=== PATIENT | female | born 1965 | race Caucasian/White ===

== ENCOUNTER 2019-04-25 21:08 | Emergency (ER) | payer SELFPAY ==
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
[2019-04-25 21:55] VITALS: BP 164/89; TEMP 97.6; O2SAT 98
== END 2019-04-25 21:42 | disposition home or self-care (01) ==
LOC: ER 21:08
DX: S20.212A Contusion of left front wall of thorax, initial encounter (principal); V43.53XA Car driver injured in collision with pick-up truck in traffic accident, initial encounter; Y93.89 Activity, other specified; Y92.410 Unspecified street and highway as the place of occurrence of the external cause
CPT/HCPCS: 99283

== ENCOUNTER 2024-12-14 02:15 | Emergency (ER) | payer OTHER ==
--- OUTSIDE RECORDS SUMMARY | 2024-12-14 02:20 | XMS REPORT | Continuity of Care Document ---
Author Name Unknown Address [address] [address] [place] [address] [facility] Address 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 Role Phone Almita Lancaster Primary Care Physician [phone] MOJGAN FOSTER Attending Clinician Unavailabl e Therapy, [facility] Covid Infusion Attending Clinician Unavailable Hernandez Woods MD Attending Clinician [phone] HERNANDEZ WOODS Attending Clinician Unavailable Doctor Unassigned, [place] Attending Clinician U MEREDITH Mac Attending Clinician Unavailable Meredith Garcia PA-C Attending Clinician [phone] Jono Morfin PA-C Attending Clinician [phone] Almita Lancaster Attending Clinician [phone] CHICHI BAIN Attending Clinician Unavailable Chichi Bain MD Attending Clinician [phone] Mojgan Foster MDsons Attending Clinician Unavail able Only, Adc Test Attending Clinician Unavailable SABAALMITA HAIR Tommy Attending Clinician Unavailable Yolanda MCLAUGHLIN, Paulo Norris Attending Clinician [phone] Pob, [facility] Lab Main Attending Clinician Unavailromero e Lab, Adc Fam Pob I Attending Clinician Unavailab AGGIE Martinez Attending Clinician Unavailable Bennie Quinn DO Attending Clinician [phone] FIDELINA ALONZO Attending Clinician Mary Streeter MD, Misael Ledesma Attending Clinician [phone] Jamil Costello Attending Clinician [phone] Attending Clinician Unavailromero Alonzo MD, Fidelina Bradley Attending Clinician + [phone] Elsi Babcock Attending Clinician [phone] ELSI CHAVARRIA Attending Clinician Unavailable Natividad BELTRAN, Ngoc Montano Attending Clinician Cally Aron Cheng MD Attending Clinician [phone] MOJGAN FOSTER Admitting Clinician Unavailromero Foster MD, Mojgan Moscoso Admitting Clinician Payers Payer Name Policy Type Policy Number Effective Date Expirati on Date Source XTRM [id number] 2020 00:00:00 [id number] 2019 00:00:00 Problems Condition Name Condition Details Condition Category Status Onset Date Resolution Date Last Treatment Date Treating Clinician Comments Source Esophageal reflux Esophageal reflux Disease Active 02-10 00:00: 00 [facility] Positive FIT (fecal immunochem ical test) Positive FIT (fecal immunochem ical test) Disease Active 02-05 00:00: 00 [facility] Obesity (BMI 30-39.9) Obesity (BMI 30-39.9) Disease Active 09-25 00:00: 00 [facility] Genital warts Genital warts Disease Active 09-25 00:00: 00 [facility] H/O bariatric surgery H/O bariatric surgery Disease Active 2- 00:00: 00 [facility] Prediabete s Prediabete s Disease Active 1-29 00:00: 00 [facility] Right shoulder pain Right shoulder pain Disease Active 03-30 00:00: 00 [facility] Heel pain, right Heel pain, right Disease Active 03-30 00:00: 00 [facility] Skin lesion Skin lesion Disease Active 03-30 00:00: 00 [facility] Hot flashes Hot flashes Disease Active 03-30 00:00: 00 [facility] Cyst of finger Cyst of finger Disease Active 03-30 00:00: 00 [facility] Right hand pain Right hand pain Disease Active 01-13 00:00: 00 [facility] Allergies, Adverse Reactions, Alerts Allergy Name Allergy Type Status Severity Reaction(s) Onset Date Inactive Date Treating Clinician Comments Source NO KNOWN ALLERGIE S Drug Class Active [facility] Social History Social Habit Start Date Stop Date Quantity Comments Source [facility] SARS-CoV-2 (event) 2021-07-04 00:00:00 2021-08-03 09:28:00 Yes [facility] History of Social function 2021-04-02 00:00:00 2021-04-02 00:00:00 [facility] Alcohol intake 2019-10-26 00:00:00 2019-10-26 00:00:00 0 /d [facility] Cigarettes smoked current (pack per day) - Reported 2019-09-25 00:00:00 2019-09-25 00:00:00 [facility] Cigarette pack-years 2019-09-25 00:00:00 2019-09-25 00:00:00 [facility] Tobacco use and exposure 2019-09-25 00:00:00 2019-09-25 00:00:00 User of smokeless tobacco [facility] Tobacco Comment 2016-03-30 00:00:00 2016-03-30 00:00:00 using e cig now= fills once daily [facility] History of tobacco use 2012-03-30 00:00:00 Cigarette Smoker [facility] Sex Assigned At 1965 00:00:00 1965 00:00:00 [facility] Smoking Status Start Date Stop Date Source Ex-smoker 2019-09-25 00:00:00 2019-09-25 00:00:00 [facility] Medications Ordered Medication Name Filled Medication Name Start Date Stop Date Current Medication? Ordering Clinician Indication Dosage Frequency Signature (SIG) Comments Components Source casirivimab -imdevimab (REGEN-COV (EUA)) injection (CO-FORMULA TION) 1,200 mg 2020-08 00:30: 00 08-05 23:24 :00 No [id number] 1200mg 1,200 mg, Subcutaneo us, ONCE, 1 dose, On Wed08/05/21 at 1830, Routine [facility] multivitami n,tx-minera ls tablet 2020-08 11:51: 52 Yes 1{tbl} Take 1 tablet by mouth daily. [facility] esomeprazol e 20 mg capsule 2020-08 11:51: 52 Yes 20mg Take 20 mg by mouth daily before a meal. [facility] multivitami n,tx-minera ls tablet 2020-08 11:51: 52 Yes 1{tbl} Take 1 tablet by mouth daily. [facility] bromphenira mine-pseudo ephedrine-D M (BROMFED DM) 2-30-10 mg/5 mL syrup 2020-08 00:00: 00 Yes [id number] 5mL Take 5 mL by mouth 4 (four) times daily as needed for Congestion /Allergies or Cough. [facility] cetirizine 10 mg tablet 2020-08 00:00: 00 Yes [id number] 10mg Take 1 tablet by mouth daily. [facility] fluticasone propionate 50 mcg/actuati on nasal spray 2020-08 00:00: 00 Yes [id number] 2{spray } Use 2 Sprays in each nostril daily. [facility] esomeprazol e 20 mg capsule 04-03 19:26: 32 Yes 20mg Take 20 mg by mouth daily before a meal. [facility] esomeprazol e 20 mg capsule 04-03 14:26: 32 Yes 20mg Take 20 mg by mouth daily before a meal. [facility] multivitami n,tx-minera ls tablet 04-02 15:31: 39 Yes 1{tbl} Take 1 tablet by mouth daily. [facility] esomeprazol e 20 mg capsule 04-02 15:31: 39 Yes 20mg Take 20 mg by mouth daily before a meal. [facility] lactated ringers IV infusion 500 mL 04-02 15:15: 00 Yes 500mL at 42 mL/hr, 500 mL, IV Infusion, CONTINUOUS , Starting Wed04/02/21 at 1015, Until Discontinu ed, Routine, PACU [facility] ondansetron (ZOFRAN (PF)) injection 4 mg 04-02 15:06: 40 Yes 4mg 4 mg, Slow IV Push, PRN, 1 dose, Starting Wed04/02/21 at 1006, Until Discontinu ed, Routine, Nausea and Vomiting (N/V), PACU [facility] simethicone (GAS RELIEF (SIMETHICON E)) 40 mg/0.6 mL drops 04-02 13:22: 00 Yes PRN, Starting Wed04/02/21 at 0822, Until Discontinu ed, Routine, Intra-op [facility] lactated ringers IV infusion 1,000 mL 04-02 13:15: 00 04-02 13:24 :00 No 1000mL at 42 mL/hr, 1,000 mL, IV Infusion, ONCE, 1 dose, Wed04/02/21 at 0815, Routine, Endo Pre-op [facility] multivitami n,tx-minera ls tablet 04-02 10:31: 39 Yes 1{tbl} Take 1 tablet by mouth daily. [facility] multivitami n,tx-minera ls tablet 804 15:10: 01 Yes 1{tbl} Take 1 tablet by mouth daily. [facility] multivitami n,tx-minera ls tablet 03-06 13:40: 40 Yes 1{tbl} Take 1 tablet by mouth daily. [facility] esomeprazol e 20 mg capsule 03-06 13:40: 40 Yes 20mg Take 20 mg by mouth daily before a meal. [facility] azelastine 137 mcg (0.1 %) nasal spray 03-06 00:00: 00 Yes [id number] 1{spray } Use 1 [place] in each nostril 2 (two) times daily. Use in each nostril as directed [facility] benzonatate (TESSALON PERLES) 100 mg capsule 03-06 00:00: 00 08-03 00:00 :00 No [id number] 100mg Take 1 capsule by mouth 3 (three) times daily. [facility] multivitami n,tx-minera ls tablet 02-10 20:35: 53 Yes 1{tbl} Take 1 tablet by mouth daily. [facility] esomeprazol e 20 mg capsule 02-10 20:35: 44 Yes 20mg Take 20 mg by mouth daily before a meal. [facility] sodium,pota ssium,mag sulfates (SUPREP BOWEL PREP KIT) 17.5-3.13-1 .6 gram 02-10 00:00: 00 04-02 00:00 :00 No Please dispense 1 kit. [facility] multivitami n,tx-minera ls tablet 01-24 19:11: 09 Yes 1{tbl} Take 1 tablet by mouth daily. [facility] multivitami n,tx-minera ls tablet 2019-08 19:26: 19 Yes 1{tbl} Take 1 tablet by mouth daily. [facility] multivitami n,tx-minera ls tablet 12-28 16:18: 28 Yes 1{tbl} Take 1 tablet by mouth daily. [facility] lidocaine/m e-salicylat /camphor (VIVA PATCH TOPICAL) 12-28 16:17: 41 12-28 00:00 :00 No Apply to area(s). [facility] CYANOCOBALA MIN, VITAMIN B-12, MISC 12-28 16:17: 20 12-28 00:00 :00 No [facility] lidocaine/m e-salicylat /camphor (VIVA PATCH TOPICAL) 10-25 21:19: 35 Yes Apply to area(s). [facility] loratadine 10 mg tablet 10-25 00:00: 00 12-28 00:00 :00 No [id number] 10mg Take 1 tablet by mouth daily. [facility] fluticasone propionate 50 mcg/actuati on nasal spray 10-25 00:00: 00 12-28 00:00 :00 No [id number] 2{spray } Use 2 Sprays in each nostril daily. [facility] lidocaine/m e-salicylat /camphor (VIVA PATCH TOPICAL) 09-25 16:35: 00 Yes Apply to area(s). [facility] CYANOCOBALA MIN, VITAMIN B-12, MISC 10 16:35: 00 Yes [facility] Diclofenac Sodium 1 % gel 09-20 00:00: 00 12-28 00:00 :00 No [facility] clotrimazol e 1 % topical cream 09-13 00:00: 00 12-28 00:00 :00 No [id number] Apply to area(s) 2 (two) times daily. [facility] LEVOTHYROXI NE 75 mcg tablet 10-28 00:00: 00 09-13 00:00 :00 No TAKE 1 TABLET BY MOUTH EVERY MORNING. [facility] TRIAMTERENE -HYDROCHLOR OTHIAZID 37.5-25 mg tablet 2017- 1-10 00:00: 00 09-13 00:00 :00 No [id number] TAKE 1 TABLET BY MOUTH EVERY DAY. [facility] Immunizations Ordered Immunization Name Filled Immunization Name Date Status Comments Source SARS-COV-2 COVID-19 MODERNA VACCINE 2020-12-18 00:00:00 Completed [facility] SARS-COV-2 COVID-19 MODERNA VACCINE 2020-12-18 00:00:00 Completed [facility] SARS-COV-2 COVID-19 MODERNA VACCINE 2020-12-18 00:00:00 Completed [facility] SARS-COV-2 COVID-19 MODERNA VACCINE 2020-12-18 00:00:00 Completed [facility] SARS-COV-2 COVID-19 MODERNA VACCINE 2020-12-18 00:00:00 Completed [facility] SARS-COV-2 COVID-19 MODERNA VACCINE 2020-12-18 00:00:00 Completed [facility] SARS-COV-2 COVID-19 MODERNA VACCINE 2020-12-18 00:00:00 Completed [facility] SARS-COV-2 COVID-19 MODERNA VACCINE 2020-12-18 00:00:00 Completed [facility] SARS-COV-2 COVID-19 MODERNA VACCINE 2020-12-18 00:00:00 Completed [facility] SARS-COV-2 COVID-19 MODERNA VACCINE 2020-12-18 00:00:00 Completed [facility] SARS-COV-2 COVID-19 MODERNA VACCINE 2020-12-18 00:00:00 Completed [facility] SARS-COV-2 COVID-19 MODERNA VACCINE 2020-12-18 00:00:00 Completed [facility] SARS-COV-2 COVID-19 MODERNA VACCINE 2020-12-18 00:00:00 Completed [facility] SARS-COV-2 COVID-19 MODERNA VACCINE 2020-12-18 00:00:00 Completed [facility] SARS-COV-2 COVID-19 MODERNA VACCINE 2020-12-18 00:00:00 Completed [facility] SARS-COV-2 COVID-19 MODERNA VACCINE 2020-12-18 00:00:00 Completed [facility] SARS-COV-2 COVID-19 MODERNA VACCINE 2020-12-18 00:00:00 Completed [facility] SARS-COV-2 COVID-19 MODERNA VACCINE 2020-12-18 00:00:00 Completed [facility] SARS-COV-2 COVID-19 MODERNA VACCINE 2020-12-18 00:00:00 Completed [facility] SARS-COV-2 COVID-19 MODERNA VACCINE 2020-12-18 00:00:00 Completed [facility] SARS-COV-2 COVID-19 MODERNA VACCINE 2020-12-18 00:00:00 Completed [facility] SARS-COV-2 COVID-19 MODERNA VACCINE 2020-11-20 00:00:00 Completed [facility] SARS-COV-2 COVID-19 MODERNA VACCINE 2020-11-20 00:00:00 Completed [facility] SARS-COV-2 COVID-19 MODERNA VACCINE 2020-11-20 00:00:00 Completed [facility] SARS-COV-2 COVID-19 MODERNA VACCINE 2020-11-20 00:00:00 Completed [facility] SARS-COV-2 COVID-19 MODERNA VACCINE 2020-11-20 00:00:00 Completed [facility] SARS-COV-2 COVID-19 MODERNA VACCINE 2020-11-20 00:00:00 Completed [facility] SARS-COV-2 COVID-19 MODERNA VACCINE 2020-11-20 00:00:00 Completed [facility] SARS-COV-2 COVID-19 MODERNA VACCINE 2020-11-20 00:00:00 Completed [facility] SARS-COV-2 COVID-19 MODERNA VACCINE 2020-11-20 00:00:00 Completed [facility] SARS-COV-2 COVID-19 MODERNA VACCINE 2020-11-20 00:00:00 Completed [facility] SARS-COV-2 COVID-19 MODERNA VACCINE 2020-11-20 00:00:00 Completed [facility] SARS-COV-2 COVID-19 MODERNA VACCINE 2020-11-20 00:00:00 Completed [facility] SARS-COV-2 COVID-19 MODERNA VACCINE 2020-11-20 00:00:00 Completed [facility] SARS-COV-2 COVID-19 MODERNA VACCINE 2020-11-20 00:00:00 Completed [facility] SARS-COV-2 COVID-19 MODERNA VACCINE 2020-11-20 00:00:00 Completed [facility] SARS-COV-2 COVID-19 MODERNA VACCINE 2020-11-20 00:00:00 Completed [facility] SARS-COV-2 COVID-19 MODERNA VACCINE 2020-11-20 00:00:00 Completed [facility] SARS-COV-2 COVID-19 MODERNA VACCINE 2020-11-20 00:00:00 Completed [facility] SARS-COV-2 COVID-19 MODERNA VACCINE 2020-11-20 00:00:00 Completed [facility] SARS-COV-2 COVID-19 MODERNA VACCINE 2020-11-20 00:00:00 Completed [facility] SARS-COV-2 COVID-19 MODERNA VACCINE 2020-11-20 00:00:00 Completed [facility] Influenza Virus Vaccine Recomb Quad IM, Preserv and ABX Free 18-64 YRS 2020-06-17 00:00:00 Completed [facility] Influenza Virus Vaccine Recomb Quad IM, Preserv and ABX Free 18-64 2020-06-17 00:00:00 Completed [facility] Influenza Virus Vaccine Recomb Quad IM, Preserv and ABX Free 18-64 YRS 2020-06-17 00:00:00 Completed [facility] Influenza Virus Vaccine Recomb Quad IM, Preserv and ABX Free 18-64 YRS 2020-06-17 00:00:00 Completed [facility] Influenza Virus Vaccine Recomb Quad IM, Preserv and ABX Free 18-64 YRS 2020-06-17 00:00:00 Completed [facility] Influenza Virus Vaccine Recomb Quad IM, Preserv and ABX Free 18-64 YRS 2020-06-17 00:00:00 Completed [facility] Influenza Virus Vaccine Recomb Quad IM, Preserv and ABX Free 18-64 YRS 2020-06-17 00:00:00 Completed [facility] Influenza Virus Vaccine Recomb Quad IM, Preserv and ABX Free 18-64 YRS 2020-06-17 00:00:00 Completed [facility] Influenza Virus Vaccine Recomb Quad IM, Preserv and ABX Free 18-64 YRS 2020-06-17 00:00:00 Completed [facility] Influenza Virus Vaccine Recomb Quad IM, Preserv and ABX Free 18-64 YRS 2020-06-17 00:00:00 Completed [facility] Influenza Virus Vaccine Recomb Quad IM, Preserv and ABX Free 18-64 [facility] 2020-06-17 00:00:00 Completed [facility] Influenza Virus Vaccine Recomb Quad IM, Preserv and ABX Free 18-64 YRS 2020-06-17 00:00:00 Completed [facility] Influenza Virus Vaccine Recomb Quad IM, Preserv and ABX Free 18-64 [facility] 2020-06-17 00:00:00 Completed [facility] Influenza Virus Vaccine Recomb Quad IM, Preserv and ABX Free 18-64 [facility] 2020-06-17 00:00:00 Completed [facility] Influenza Virus Vaccine Recomb Quad IM, Preserv and ABX Free 18-64 [facility] 2020-06-17 00:00:00 Completed [facility] Influenza Virus Vaccine Recomb Quad IM, Preserv and ABX Free 18-64 [facility] 2020-06-17 00:00:00 Completed [facility] Influenza Virus Vaccine Recomb Quad IM, Preserv and ABX Free 18-64 [facility] 2020-06-17 00:00:00 Completed [facility] Influenza Virus Vaccine Recomb Quad IM, Preserv and ABX Free 18-64 [facility] 2020-06-17 00:00:00 Completed [facility] Influenza Virus Vaccine Recomb Quad IM, Preserv and ABX Free 18-64 [facility] 2020-06-17 00:00:00 Completed [facility] Influenza Virus Vaccine Recomb Quad IM, Preserv and ABX Free 18-64 [facility] 2020-06-17 00:00:00 Completed [facility] Influenza Virus Vaccine Recomb Quad IM, Preserv and ABX Free 18-64 YRS 2020-06-17 00:00:00 Completed [facility] TDAP 2019-09-13 00:00:00 Completed [facility] Influenza Virus Vaccine Quad .5 mL IM 6+ MO 2019-09-13 00:00:00 Completed [facility] Tdap 2019-09-13 00:00:00 Completed [facility] Influenza Virus Vaccine Quad .5 mL IM 6+ MO 2019-09-13 00:00:00 Completed [facility] Tdap 2019-09-13 00:00:00 Completed [facility] Influenza Virus Vaccine Quad .5 mL IM 6+ MO 2019-09-13 00:00:00 Completed [facility] Tdap 2019-09-13 00:00:00 Completed [facility] Influenza Virus Vaccine Quad .5 mL IM 6+ MO 2019-09-13 00:00:00 Completed [facility] Tdap 2019-09-13 00:00:00 Completed [facility] Influenza Virus Vaccine Quad .5 mL IM 6+ MO 2019-09-13 00:00:00 Completed [facility] Tdap 2019-09-13 00:00:00 Completed [facility] Influenza Virus Vaccine Quad .5 mL IM 6+ MO 2019-09-13 00:00:00 Completed [facility] Tdap 2019-09-13 00:00:00 Completed [facility] Influenza Virus Vaccine Quad .5 mL IM 6+ MO 2019-09-13 00:00:00 Completed [facility] Tdap 2019-09-13 00:00:00 Completed [facility] Influenza Virus Vaccine Quad .5 mL IM 6+ MO 2019-09-13 00:00:00 Completed [facility] Tdap 2019-09-13 00:00:00 Completed [facility] Influenza Virus Vaccine Quad .5 mL IM 6+ MO 2019-09-13 00:00:00 Completed [facility] Tdap 2019-09-13 00:00:00 Completed [facility] Influenza Virus Vaccine Quad .5 mL IM 6+ MO 2019-09-13 00:00:00 Completed [facility] Tdap 2019-09-13 00:00:00 Completed [facility] Influenza Virus Vaccine Quad .5 mL IM 6+ MO 2019-09-13 00:00:00 Completed [facility] TDAP 2019-09-13 00:00:00 Completed [facility] Influenza Virus Vaccine Quad .5 mL IM 6+ MO 2019-09-13 00:00:00 Completed [facility] TDAP 2019-09-13 00:00:00 Completed [facility] Influenza Virus Vaccine Quad .5 mL IM 6+ MO 2019-09-13 00:00:00 Completed [facility] TDAP 2019-09-13 00:00:00 Completed [facility] Influenza Virus Vaccine Quad .5 mL IM 6+ MO 2019-09-13 00:00:00 Completed [facility] TDAP 2019-09-13 00:00:00 Completed [facility] Influenza Virus Vaccine Quad .5 mL IM 6+ MO 2019-09-13 00:00:00 Completed [facility] TDAP 2019-09-13 00:00:00 Completed [facility] Influenza Virus Vaccine Quad .5 mL IM 6+ MO 2019-09-13 00:00:00 Completed [facility] TDAP 2019-09-13 00:00:00 Completed [facility] Influenza Virus Vaccine Quad .5 mL IM 6+ MO 2019-09-13 00:00:00 Completed [facility] TDAP 2019-09-13 00:00:00 Completed [facility] Influenza Virus Vaccine Quad .5 mL IM 6+ MO 2019-09-13 00:00:00 Completed [facility] TDAP 2019-09-13 00:00:00 Completed [facility] Influenza Virus Vaccine Quad .5 mL IM 6+ MO 2019-09-13 00:00:00 Completed [facility] TDAP 2019-09-13 00:00:00 Completed [facility] Influenza Virus Vaccine Quad .5 mL IM 6+ MO 2019-09-13 00:00:00 Completed [facility] TDAP 2019-09-13 00:00:00 Completed [facility] Influenza Virus Vaccine Quad .5 mL IM 6+ MO 2019-09-13 00:00:00 Completed [facility] TDAP 2019-09-13 00:00:00 Completed [facility] Influenza Virus Vaccine Quad .5 mL IM 6+ MO 2019-09-13 00:00:00 Completed [facility] TDAP 2019-09-13 00:00:00 Completed [facility] Influenza Virus Vaccine Quad .5 mL IM 6+ MO 2019-09-13 00:00:00 Completed [facility] TDAP 2019-09-13 00:00:00 Completed [facility] Influenza Virus Vaccine Quad .5 mL IM 6+ MO 2019-09-13 00:00:00 Completed [facility] TDAP 2019-09-13 00:00:00 Completed [facility] Influenza Virus Vaccine Quad .5 mL IM 6+ MO 2019-09-13 00:00:00 Completed [facility] TDAP 2019-09-13 00:00:00 Completed [facility] Influenza Virus Vaccine Quad .5 mL IM 6+ MO 2019-09-13 00:00:00 Completed [facility] TDAP 2019-09-13 00:00:00 Completed [facility] Influenza Virus Vaccine Quad .5 mL IM 6+ MO 2019-09-13 00:00:00 Completed [facility] TDAP 2019-09-13 00:00:00 Completed [facility] Influenza Virus Vaccine Quad .5 mL IM 6+ MO 2019-09-13 00:00:00 Completed [facility] TDAP 2019-09-13 00:00:00 Completed [facility] Influenza Virus Vaccine Quad .5 mL IM 6+ MO 2019-09-13 00:00:00 Completed [facility] TDAP 2019-09-13 00:00:00 Completed [facility] Influenza Virus Vaccine Quad .5 mL IM 6+ MO 2019-09-13 00:00:00 Completed [facility] TDAP 2019-09-13 00:00:00 Completed [facility] Influenza Virus Vaccine Quad .5 mL IM 6+ MO 2019-09-13 00:00:00 Completed [facility] TDAP 2019-09-13 00:00:00 Completed [facility] Influenza Virus Vaccine Quad .5 mL IM 6+ MO 2019-09-13 00:00:00 Completed [facility] TDAP 2019-09-13 00:00:00 Completed [facility] Influenza Virus Vaccine Quad .5 mL IM 6+ MO 2019-09-13 00:00:00 Completed [facility] TDAP 2019-09-13 00:00:00 Completed [facility] Influenza Virus Vaccine Quad .5 mL IM 6+ MO 2019-09-13 00:00:00 Completed [facility] TDAP 2019-09-13 00:00:00 Completed [facility] Influenza Virus Vaccine Quad .5 mL IM 6+ MO 2019-09-13 00:00:00 Completed [facility] TDAP 2019-09-13 00:00:00 Completed [facility] Influenza Virus Vaccine Quad .5 mL IM 6+ MO 2019-09-13 00:00:00 Completed [facility] TDAP 2019-09-13 00:00:00 Completed [facility] Influenza Virus Vaccine Quad .5 mL IM 6+ MO 2019-09-13 00:00:00 Completed [facility] TDAP 2019-09-13 00:00:00 Completed [facility] Influenza Virus Vaccine Quad .5 mL IM 6+ MO 2019-09-13 00:00:00 Completed [facility] TDAP 2019-09-13 00:00:00 Completed [facility] Influenza Virus Vaccine Quad .5 mL IM 6+ MO 2019-09-13 00:00:00 Completed [facility] TDAP 2019-09-13 00:00:00 Completed [facility] Influenza Virus Vaccine Quad .5 mL IM 6+ MO 2019-09-13 00:00:00 Completed [facility] TDAP 2019-09-13 00:00:00 Completed [facility] Influenza Virus Vaccine Quad .5 mL IM 6+ MO 2019-09-13 00:00:00 Completed [facility] TDAP 2019-09-13 00:00:00 Completed [facility] Influenza Virus Vaccine Quad .5 mL IM 6+ MO 2019-09-13 00:00:00 Completed [facility] TDAP Unknown Completed [facility] Influenza Virus Vaccine Quad .5 mL IM 6+ MO (FLUZONE/FLULAVAL/F LUARIX) Unknown Completed [facility] SARS-COV-2 COVID-19 MODERNA 12+ YRS VACCINE Unknown Completed [facility] Influenza Virus Vaccine Recomb Quad IM, Preserv and ABX Free 18-64 YRS Unknown Completed [facility] TDAP Unknown Completed [facility] Influenza Virus Vaccine Quad .5 mL IM 6+ MO (FLUZONE/FLULAVAL/F LUARIX) Unknown Completed [facility] SARS-COV-2 COVID-19 MODERNA 12+ YRS VACCINE Unknown Completed [facility] Influenza Virus Vaccine Recomb Quad IM, Preserv and ABX Free 18-64 YRS Unknown Completed [facility] TDAP Unknown Completed [facility] Influenza Virus Vaccine Quad .5 mL IM 6+ MO (FLUZONE/FLULAVAL/F LUARIX) Unknown Completed [facility] SARS-COV-2 COVID-19 MODERNA 12+ YRS VACCINE Unknown Completed [facility] Influenza Virus Vaccine Recomb Quad IM, Preserv and ABX Free 18-64 YRS Unknown Completed [facility] TDAP Unknown Completed [facility] Influenza Virus Vaccine Quad .5 mL IM 6+ MO (FLUZONE/FLULAVAL/F LUARIX) Unknown Completed [facility] TDAP Unknown Completed [facility] Influenza Virus Vaccine Quad .5 mL IM 6+ MO (FLUZONE/FLULAVAL/F LUARIX) Unknown Completed [facility] Vital Signs Vital Name Observation Time Observation Value Comments S ource Systolic blood pressure 2021-08-06 00:09:00 126 mm[Hg] [facility] Diastolic blood pressure 2021-08-06 00:09:00 71 mm[Hg] [facility] Heart rate 2021-08-06 00:09:00 97 /min [facility] Body temperature 2021-08-06 00:09:00 37.11 [facility] Respiratory rate 2021-08-06 00:09:00 18 /min [facility] Oxygen saturation in Arterial blood by Pulse oximetry 2021-08-06 00:09:00 97 /min [facility] Body height 2021-08-05 23:22:00 165.1 cm [facility] Body weight 2021-08-05 23:22:00 83.915 kg [facility] BMI 2021-08-05 23:22:00 30.79 kg/m2 [facility] Systolic blood pressure 2021-08-03 17:50:00 119 mm[Hg] [facility] Diastolic blood pressure 2021-08-03 17:50:00 76 mm[Hg] [facility] Heart rate 2021-08-03 17:50:00 94 /min [facility] Body temperature 2021-08-03 17:50:00 36.89 [facility] Respiratory rate 2021-08-03 17:50:00 20 /min [facility] Body height 2021-08-03 17:50:00 165.1 cm [facility] Body weight 2021-08-03 17:50:00 84.142 kg Univ [facility] BMI 2021-08-03 17:50:00 30.87 kg/m2 [facility] Oxygen saturation in Arterial blood by Pulse oximetry 2021-08-03 17:50:00 97 /min [facility] Systolic blood pressure 2021-04-03 19:26:00 121 mm[Hg] [facility] Diastolic blood pressure 2021-04-03 19:26:00 74 mm[Hg] [facility] Heart rate 2021-04-03 19:26:00 86 /min [facility] Body temperature 2021-04-03 19:26:00 36.56 [facility] Respiratory rate 2021-04-03 19:26:00 16 /min [facility] Body height 2021-04-03 19:26:00 165.1 cm [facility] Body weight 2021-04-03 19:26:00 83.28 kg [facility] BMI 2021-04-03 19:26:00 30.55 kg/m2 [facility] Systolic blood pressure 2021-04-02 15:05:00 122 mm[Hg] [facility] Diastolic blood pressure 2021-04-02 15:05:00 71 mm[Hg] [facility] Heart rate 2021-04-02 15:05:00 69 /min [facility] Respiratory rate 2021-04-02 15:05:00 16 /min [facility] Oxygen saturation in Arterial blood by Pulse oximetry 2021-04-02 15:05:00 100 /min [facility] Body temperature 2021-04-02 14:50:00 36.5 [facility] Body height 2021-04-02 13:28:00 165.1 cm [facility] Body weight 2021-04-02 13:28:00 79.379 [facility] 2021-04-02 13:28:00 29.12 kg/m2 [facility] Systolic blood pressure 2021-04-02 13:28:00 132 mm[Hg] [facility] Diastolic blood pressure 2021-04-02 13:28:00 75 mm[Hg] [facility] Heart rate 2021-04-02 13:28:00 71 /min [facility] Body temperature 2021-04-02 13:28:00 36.39 [facility] Respiratory rate 2021-04-02 13:28:00 16 /min [facility] Body height 2021-04-02 13:28:00 165.1 cm [facility] Body weight 2021-04-02 13:28:00 79.379 kg Univ [facility] BMI 2021-04-02 13:28:00 29.12 kg/m2 [facility] Oxygen saturation in Arterial blood by Pulse oximetry 2021-04-02 13:28:00 96 /min [facility] Systolic blood pressure 2021-03-19 15:08:00 121 mm[Hg] [facility] Diastolic blood pressure 2021-03-19 15:08:00 74 mm[Hg] [facility] Heart rate 2021-03-19 15:08:00 88 /min [facility] Body temperature 2021-03-19 15:08:00 36.72 [facility] Respiratory rate 2021-03-19 15:08:00 16 /min [facility] Body height 2021-03-19 15:08:00 167.6 cm [facility] Body weight 2021-03-19 15:08:00 83.371 kg Univ [facility] BMI 2021-03-19 15:08:00 29.67 kg/m2 [facility] Body temperature 2021-03-06 13:50:00 36.61 [facility] Systolic blood pressure 2021-03-06 13:37:00 119 mm[Hg] [facility] Diastolic blood pressure 2021-03-06 13:37:00 57 mm[Hg] [facility] Heart rate 2021-03-06 13:37:00 78 /min [facility] Respiratory rate 2021-03-06 13:37:00 16 /min [facility] Body height 2021-03-06 13:37:00 167.6 cm [facility] Body weight 2021-03-06 13:37:00 83.462 kg [facility] BMI 2021-03-06 13:37:00 29.70 kg/m2 [facility] Oxygen saturation in Arterial blood by Pulse oximetry 2021-03-06 13:37:00 96 /min [facility] Systolic blood pressure 2021-02-10 19:46:00 129 mm[Hg] [facility] Diastolic blood pressure 2021-02-10 19:46:00 76 mm[Hg] [facility] Heart rate 2021-02-10 19:46:00 85 /min [facility] Body temperature 2021-02-10 19:46:00 36.17 [facility] Respiratory rate 2021-02-10 19:46:00 18 /min [facility] Body height 2021-02-10 19:46:00 167.6 cm [facility] Body weight 2021-02-10 19:46:00 80.604 kg [facility] BMI 2021-02-10 19:46:00 28.68 kg/m2 [facility] Oxygen saturation in Arterial blood by Pulse oximetry 2021-02-10 19:46:00 97 /min [facility] Systolic blood pressure 2021-01-24 19:10:00 126 mm[Hg] [facility] Diastolic blood pressure 2021-01-24 19:10:00 76 mm[Hg] [facility] Heart rate 2021-01-24 19:10:00 85 /min [facility] Body temperature 2021-01-24 19:10:00 36.67 [facility] Body height 2021-01-24 19:10:00 167.6 cm [facility] Body weight 2021-01-24 19:10:00 82.373 kg [facility] BMI 2021-01-24 19:10:00 29.31 kg/m2 [facility] Oxygen saturation in Arterial blood by Pulse oximetry 2021-01-24 19:10:00 99 /min [facility] Systolic blood pressure 2020-07-04 19:23:00 116 mm[Hg] [facility] Diastolic blood pressure 2020-07-04 19:23:00 72 mm[Hg] [facility] Heart rate 2020-07-04 19:23:00 76 /min [facility] Body height 2020-07-04 19:23:00 165.1 cm [facility] Body weight 2020-07-04 19:23:00 77.111 kg [facility] BMI 2020-07-04 19:23:00 28.29 kg/m2 [facility] Systolic blood pressure 2020-07-04 19:23:00 116 mm[Hg] [facility] Diastolic blood pressure 2020-07-04 19:23:00 72 mm[Hg] [facility] Heart rate 2020-07-04 19:23:00 76 /min [facility] Body height 2020-07-04 19:23:00 165.1 cm [facility] Body weight 2020-07-04 19:23:00 77.111 kg [facility] BMI 2020-07-04 19:23:00 28.29 kg/m2 [facility] Systolic blood pressure 2019-10-26 21:19:00 111 mm[Hg] [facility] Diastolic blood pressure 2019-10-26 21:19:00 68 mm[Hg] [facility] Heart rate 2019-10-26 21:19:00 76 /min [facility] Body temperature 2019-10-26 21:19:00 36.56 [facility] Body height 2019-10-26 21:19:00 165.1 cm [facility] Body weight 2019-10-26 21:19:00 84.142 kg [facility] BMI 2019-10-26 21:19:00 30.87 kg/m2 [facility] Oxygen saturation in Arterial blood by Pulse oximetry 2019-10-26 21:19:00 98 /min [facility] Systolic blood pressure 2019-09-25 16:30:00 136 mm[Hg] [facility] Diastolic blood pressure 2019-09-25 16:30:00 78 mm[Hg] [facility] Heart rate 2019-09-25 16:30:00 91 /min [facility] Body temperature 2019-09-25 16:30:00 36.72 [facility] Respiratory rate 2019-09-25 16:30:00 20 /min [facility] Body height 2019-09-25 16:30:00 165.1 cm [facility] Body weight 2019-09-25 16:30:00 85.73 kg [facility] BMI 2019-09-25 16:30:00 31.45 kg/m2 [facility] Systolic blood pressure 2019-09-13 14:18:00 113 mm[Hg] [facility] Diastolic blood pressure 2019-09-13 14:18:00 72 mm[Hg] [facility] Heart rate 2019-09-13 14:18:00 79 /min [facility] Body temperature 2019-09-13 14:18:00 36.44 [facility] Body height 2019-09-13 14:18:00 165.1 cm Univ [facility] Body weight 2019-09-13 14:18:00 87.998 kg [facility] BMI 2019-09-13 14:18:00 32.28 kg/m2 [facility] Oxygen saturation in Arterial blood by Pulse oximetry 2019-09-13 14:18:00 97 /min [facility] Procedures Procedure Date / Time Performed Performing Clinician Source [id number] CONSENT 2021-08-05 06:01:00 Doctor Coronel signed, [place] [facility] SCANNED LAB RESULTS 2021-04-04 05:01:00 Doctor Dafne lyle, [place] [facility] DISCLOSURE AND CONSENT MEDICAL & SURGICAL PROCEDURES - FEMALM 2021-04-03 05:01:00 Doctor Unassigned, [place] [facility] SURGICAL PATHOLOGY EXAM 2021-04-02 14:26:00 Mojgan Foster [facility] COLONOSCOPY 2021-04-02 14:01:00 [facility] 2021-04-02 12:53:57 Almita Walter [facility] COLONOSCOPY (ENDO) 2021-04-02 12:53:57 Almita Walter [facility] ASSIGNMENT OF BENEFITS 2021-04-02 12:48:20 Docto r Unassigned, [place] [facility] ASSIGNMENT OF BENEFITS 2021-03-31 15:09:51 Docto r Unassigned, [place] [facility] POCT GRP A STREP (MOLECULAR) 2021-03-06 14:15:00 Almita Walter [facility] ASSIGNMENT OF BENEFITS 2021-02-03 17:53:18 Docto r Unassigned, [place] [facility] XR SHOULDER <2 VW LEFT 2020-07-04 18:58:04 Maninder Streeter [facility] INSURANCE CORRESPONDENCE 2020-06-28 06:01:00 Doc tor Unassigned, [place] [facility] POCT FLU A AND B (MOLECULAR) 2019-10-26 00:00:00 Almita Walter [facility] INSURANCE CORRESPONDENCE 2019-09-20 06:01:00 Doc tor Unassigned, [place] [facility] BI SCREENING MAMMOGRAM BILATERAL 2019-09-15 15:45:40 Almita Walter [facility] TDAP VACCINE, >11 YRS, IM 2019-09-13 14:32:10 Almita Walter [facility] FLU VACC ([id number]), 6+ MONTHS, IM, QUAD 2019-09-13 14:32:10 Almita Walter [facility] ASSIGNMENT OF BENEFITS 2019-09-13 13:35:28 Docto r Unassigned, [place] [facility] Encounters Start Date/Time End Date/Time Encounter Type Admission Type Attending Clinicians Care Facility Care Department Encounter ID Source 2021-06-16 04:55:04 Outpatient MOJGAN UNDERWOOD [facility] LUIS [id number] [facility] 2021-08-05 17:00:00 2021-08-05 18:00:00 Nurse Visit Therapy, Adc Covid Infusion Hernandez Woods [facility] 1.840.114 350.1.13.10 4.2.7.2.686 [id number] [facility] 2021-08-05 17:00:00 2021-08-05 17:00:00 Outpatient HERNANDEZ RUEDA [facility] [id number] [facility] 2021-08-05 00:00:00 2021-08-05 00:00:00 Orders Only Doctor Unassigned, [place] [facility] 1..114 350.1.13.10 4.2.7.2.686 [id number] [facility] 2021-08-03 11:40:00 2021-08-03 12:15:49 Outpatient MEREDITH MUHAMMAD [facility] [id number] [facility] 2021-08-03 11:40:00 2021-08-03 12:00:00 Urgent Care Meredith Garcia John [facility] NIRU?[facility] 1.84.114 350.1.13.10 4.2.7.2.686 [id number] [facility] 2021-04-24 00:00:00 2021-04-24 00:00:00 Refill Almita Walter [facility] Fela [facility] Office [facility] 1.84.114 350.1.13.10 4.2.7.2.686 [id number] [facility] 2021-04-17 13:30:00 2021-04-17 13:30:00 Outpatient R LUIS BAINIAN [facility] [id number] [facility] 2021-04-04 00:00:00 2021-04-04 00:00:00 Orders Only Doctor Unassigned, [place] [facility] 1.2840.114 350.1.13.10 4.2.7.2.686 [id number] [facility] 2021-04-03 13:52:51 2021-04-03 14:59:52 Office Visit Chichi Bain [facility] 1.20.114 350.1.13.10 4.2.7.2.686 [id number] [facility] 2021-04-03 14:00:00 2021-04-03 14:00:00 Outpatient R JERICA [facility] [id number] [facility] 2021-04-03 00:00:00 2021-04-03 00:00:00 Orders Only Doctor Unassigned, [place] [facility] 1.20.114 350.1.13.10 4.2.7.2.686 [id number] [facility] 2021-04-03 00:00:00 2021-04-03 00:00:00 Patient Secure [facility] 1.2840.114 350.1.13.10 4.2.7.2.686 [id number] [facility] 2021-04-02 07:48:00 2021-04-02 10:25:00 Hospital Encounter Mojgan Foster [facility] ([facility] 1.2.840.114 350.1.13.10 4.2.7.2.686 [id number] [facility] 2021-04-02 09:00:00 2021-04-02 09:45:00 Surgery GoMojgan leo [facility] [place] 1.840.114 350.1.13.10 4.2.7.2.686 [id number] [facility] 2021-04-02 00:00:00 2021-04-02 00:00:00 Orders Only Doctor Unassigned, [place] [facility] 1.2840.114 350.1.13.10 4.2.7.2.686 [id number] [facility] 2021-04-01 00:00:00 2021-04-01 00:00:00 Patient Secure Msg Doctor Unassigned, [place] [facility] 1.2840.114 350.1.13.10 4.2.7.2.686 [id number] [facility] 2021-03-31 10:00:00 2021-03-31 23:59:00 Hospital Encounter AdChichi campbell [facility] 1.840.114 350.1.13.10 4.2.7.2.686 [id number] [facility] 2021-03-31 10:18:07 2021-03-31 10:33:07 Laboratory Only Only, Adc Test EnriqueChichi campbell [facility] 1.2840.114 350.1.13.10 4.2.7.2.686 [id number] [facility] 2021-03-31 00:00:00 2021-03-31 00:00:00 Outpatient R CHICHI BAIN [facility] [id number] [facility] 2021-03-31 00:00:00 2021-03-31 00:00:00 Orders Only Doctor Unassigned, [place] [facility] 1.2840.114 350.1.13.10 4.2.7.2.686 [id number] [facility] 2021-03-19 09:52:53 2021-03-19 10:49:38 Office Visit Chichi Bain [facility]ta[facility] Building 1.2.840.114 350.1.13.10 4.2.7.2.686 [id number] [facility] 2021-03-19 10:00:00 2021-03-19 10:00:00 Outpatient R CHICHI BAIN [facility] [id number] [facility] 2021-03-06 08:31:51 2021-03-06 09:27:01 Office Visit Almita Walter [facility] Office [facility] 1..840.114 350.1.13.10 4.2.7.2.686 [id number] [facility] 2021-03-06 08:30:00 2021-03-06 08:30:00 Outpatient R ALMITA WALTER [facility] [id number] [facility] 2021-02-12 00:00:00 2021-02-12 00:00:00 Patient Secure Msg Doctor Unassigned, [place] [facility] [place] 1..840.114 350.1.13.10 4.2.7.2.686 [id number] [facility] 2021-02-10 14:34:17 2021-02-10 16:21:58 Office Visit Paulo Guerrero Eric Winsons [facility] 1..840.114 350.1.13.10 4.2.7.2.686 [id number] [facility] 2021-02-10 14:30:00 2021-02-10 14:30:00 Outpatient R [facility] [id number] [facility] 2021-02-05 00:00:00 2021-02-05 00:00:00 Telephone Almita Walter [facility] Office [facility] 1.114 350.1.13.10 4.2.7.2.686 [id number] [facility] 2021-02-03 12:55:44 2021-02-03 13:10:44 [employer] Visit Pob, Adc Lab Main Almita Walter [facility] Building 1..114 350.1.13.10 4.2.7.2.686 [id number] [facility] 2021-02-03 13:00:00 2021-02-03 13:00:00 Outpatient R ALTON WALTERLIE [facility] [id number] [facility] 2021-02-03 00:00:00 2021-02-03 00:00:00 Orders Only Doctor Unassigned, [place] [facility] 1..114 350.1.13.10 4.2.7.2.686 [id number] [facility] 2021-01-27 08:12:10 2021-01-27 08:32:10 [employer]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, [facility] Po I Almita Walter [facility] Office [facility] One 1.114 350.1.13.10 4.2.7.2.686 [id number] [facility] 2021-01-27 08:20:00 2021-01-27 08:20:00 Outpatient R ALTON WALTERLIE [facility] [id number] [facility] 2021-01-24 14:01:15 2021-01-24 14:53:14 Office Visit Almita Walter [facility] Office [facility] One 1.114 350.1.13.10 4.2.7.2.686 [id number] [facility] 2021-01-24 14:00:00 2021-01-24 14:00:00 Outpatient ALMITA COLEY [facility] [id number] [facility] 2020-12-18 08:40:00 2020-12-18 08:40:00 Outpatient AGGIE RICO [facility] [id number] [facility] 2020-11-20 17:00:00 2020-11-20 17:00:00 Outpatient AGGIE RICO [facility] [id number] [facility] 2020-10-29 00:00:00 2020-10-29 00:00:00 Patient Outreach Bennie Quinn [facility] 1.840.114 350.1.13.10 4.2.7.2.686 [id number] [facility] 2020-09-25 10:00:00 2020-09-25 10:00:00 Outpatient CHICHI HENRIQUEZ [facility] [id number] [facility] 2020-09-17 11:15:00 2020-09-17 11:15:00 Outpatient FIDELINA GAMBLE [facility] [id number] [facility] 2020-09-13 11:00:00 2020-09-13 11:00:00 Outpatient ALMITA COLEY [facility] [id number] [facility] 2020-07-04 12:24:14 2020-07-04 23:59:00 Hospital Encounter Misael Streeter [facility] 1.2840.114 350.1.13.10 4.2.7.2.686 [id number] [facility] 2020-07-04 13:17:32 2020-07-04 14:27:40 Office Visit Jamil Parisi [facility] 1.2840.114 350.1.13.10 4.2.7.2.686 [id number] 2020-07-04 13:17:32 2020-07-04 14:27:40 Office Visit Jamil Parisi [facility] 1.2840.114 350.1.13.10 4.2.7.2.686 [id number] [facility] 2020-07-04 13:15:00 2020-07-04 13:15:00 Outpatient R M[address]EL STREETER [facility] [id number] [facility] 2020-07-03 00:00:00 2020-07-03 00:00:00 Telephone Streeter Miseal Baltazar [facility] 1.2840.114 350.1.13.10 4.2.7.2.686 [id number] [facility] 2020-06-28 00:00:00 2020-06-28 00:00:00 Orders Only Doctor Unassigned, [place] [facility] 1.2.840.114 350.1.13.10 4.2.7.2.686 [id number] [facility] 2020-06-28 00:00:00 2020-06-28 00:00:00 Orders Only Doctor Unassigned, [place] [facility] 1.2840.114 350.1.13.10 4.2.7.2.686 [id number] 2020-06-27 00:00:00 2020-06-27 00:00:00 Telephone Fidelina Alonzo Count includes the [facility] Fela waldron Office [facility] 1.284.114 350.1.13.10 4.2.7.2.686 [id number] [facility] 2020-06-20 11:00:00 2020-06-20 11:00:00 Outpatient FIDELINA GAMBLE [facility] [id number] [facility] 2020-06-20 08:26:52 2020-06-20 08:41:52 Telemedici ne Visit Fidelina Alonzo [facility] Office [facility] 1.114 350.1.13.10 4.2.7.2.686 [id number] [facility] 2020-04-25 00:00:00 2020-04-25 00:00:00 Patient Secure Msg Doctor Unassigned, [place] [facility] 1.114 350.1.13.10 4.2.7.2.686 [id number] [facility] 2020-04-23 11:40:23 2020-04-23 12:00:23 Laboratory Only Lab, [facility] Papa Pob Brittni Deon [facility] Office Building One 1.114 350.1.13.10 4.2.7.2.686 [id number] [facility] 2020-04-23 11:20:00 2020-04-23 11:20:00 Outpatient R ELSI CHAVARRIA [facility] [id number] [facility] 2020-04-12 09:55:22 2020-04-12 10:15:22 Laboratory Only Lab, [facility] Papa Pob Brittni Deon [facility] Office Building One 1.114 350.1.13.10 4.2.7.2.686 [id number] [facility] 2020-04-12 09:40:00 2020-04-12 09:40:00 [facility] [id number] [facility] 2020-04-12 00:00:00 2020-04-12 00:00:00 Telephone Ngoc Qureshi [facility] 1.114 350.1.13.10 4.2.7.2.686 [id number] [facility] 2020-03-12 11:06:18 2020-03-12 11:26:18 Laboratory Only Lab, Adc Fam Pob I Elsi Chavarria [facility] Office Building One 1.114 350.1.13.10 4.2.7.2.686 [id number] [facility] 2020-03-12 11:00:00 2020-03-12 11:00:00 Outpatient R ELSI CHAVARRIA [facility] [id number] [facility] 2020-03-11 00:00:00 2020-03-11 00:00:00 Patient Secure Msg Doctor Unassigned, [place] [facility] OFFICE BUILDING ONE 1.114 350.1.13.10 4.2.7.2.686 [id number] [facility] 2020-01-24 13:15:00 2020-01-24 13:15:00 Outpatient R [facility] [id number] [facility] 2020-01-24 12:43:30 2020-01-24 12:58:30 Laboratory Only Only, Adc Test Aron Andrews [facility] 1.114 350.1.13.10 4.2.7.2.686 [id number] [facility] 2020-01-24 00:00:00 2020-01-24 00:00:00 Telephone Hernandez Woods [facility] Office Building One 1.114 350.1.13.10 4.2.7.2.686 [id number] [facility] 2019-12-29 11:30:00 2019-12-29 11:30:00 Outpatient R FIDELINA ALONZO [facility] [id number] [facility] 2019-12-29 08:43:29 2019-12-29 08:58:29 Telemedici ne Visit Fidelina Alonzo [facility] Building 1.114 350.1.13.10 4.2.7.2.686 [id number] [facility] 2019-10-26 14:39:07 2019-10-26 16:56:13 Office Visit Almita Walter [facility] Office Building One 1.2.114 350.1.13.10 4.2.7.2.686 [id number] [facility] 2019-10-26 16:20:00 2019-10-26 16:20:00 Outpatient R ALMITA WALTER [facility] [id number] [facility] 2019-10-10 00:00:00 2019-10-10 00:00:00 Patient Secure Msg Doctor Unassigned, [place] [facility] 1.20.114 350.1.13.10 4.2.7.2.686 [id number] [facility] 2019-10-10 00:00:00 2019-10-10 00:00:00 Patient Secure Msg Doctor Unassigned, [place] [facility] 1.20.114 350.1.13.10 4.2.7.2.686 [id number] [facility] 2019-09-25 10:09:50 2019-09-25 11:20:01 Office Visit Chichi Bain [facility] Building 1.114 350.1.13.10 4.2.7.2.686 [id number] [facility] 2019-09-20 00:00:00 2019-09-20 00:00:00 Orders Only Doctor Unassigned, [place] [facility] 1.2.114 350.1.13.10 4.2.7.2.686 [id number] [facility] 2019-09-15 09:00:00 2019-09-15 23:59:00 Hospital Encounter Almita Walter [facility] 1.2.840.114 350.1.13.10 4.2.7.2.686 [id number] [facility] 2019-09-13 07:37:06 2019-09-13 09:03:14 Office Visit Almita Walter [facility] Office Building One 1.2840.114 350.1.13.10 4.2.7.2.686 [id number] [facility] 2019-09-13 00:00:00 2019-09-13 00:00:00 Orders Only Doctor Unassigned, [place] [facility] 1.2840.114 350.1.13.10 4.2.7.2.686 [id number] [facility] Results Test Description Test Time Test Comments Results Result Co [facility]2021-[facility]-06 14:15:00* Test Item Value Reference Range Interpretation Comme nts POCT GP A STREP (test code = 92818-7) Negative Negative - Negative [facility] GRP A STREP (MOLECULAR)2021-03-06 14:15:00* Test Item Value Reference Range Interpretation Comme nts POCT GP A STREP (test code = 05397-1) Negative Negative - Negative [facility]2 VW [id number] 19:00:15 HISTORY: ?Pain. FINDINGS: 2 frontal projection views of left shoulder obtained with the palma internal and external rotation positions showed no acute fracture ordislocation. No calcification seen inthe rotator cuff tendons oraggressive bone lesions seen.Minimal AC joint degenerative arthrosis andminimal arthritis of lowerportion of the glenohumeral joint noted. No cervical rib. CONCLUSIONS: Noacute fracture or dislocation in left shoulder. [facility], Radiant Results Inft - 07/04/2020 1:01 PM CSTHISTORY: Pain.FINDINGS: 2 frontal projection views of left shoulder obtained with the palma internal and external rotation positions showed no acute fracture ordislocation. No calcification seen in the rotator cuff tendons oraggressive bone lesions seen.Minimal AC joint degenerative arthrosis and minimal arthritis of lowerportion of the glenohumeral joint noted. No cervical rib.CONCLUSIONS: No acute fracture or dislocation in left shoulder.[facility] 2019-10-26 21:00:00* Test Item Value Reference Range Interpretation Comme nts POCT INFLUENZA A (test code = 3840) NEGATIVE Negative - Negative POCT INFLUENZA B (test code = 3841) NEGATIVE Negative - Negative [facility]2019-10-26 21:00:00* Test Item Value Reference Range Interpretation Comme nts POCT INFLUENZA A (test code = 3840) NEGATIVE Negative - Negative POCT INFLUENZA B (test code = 3841) NEGATIVE Negative - Negative [facility] [id number] 18:21:47Examination:BI SCREENING MAMMOGRAM BILATERAL History:Patient is 54 year old and is seen for: ?Screening mammogram. Computer-aided detection (CAD) utilized. Comparisons: 04/27/2016 DIGITAL MAMMOGRAM, SCREENING (No Change) Findings:The breasts have scattered areas of fibroglandular density. There is no evidence of suspicious masses, calcifications, or other abnormal findings. Impression:No mammographic evidence of malignancy. Recommendation:Annual mammographic follow-up BI-RADS Category: Both [facility]
[2024-12-14] MEDS ORDERED: MORPHINE 2 MG/ML SYR ONE (02:26)
[2024-12-14] MEDS ORDERED: ONDANSETRON 4 MG/2 ML VIAL ONE (02:27)
[2024-12-14] MEDS ORDERED: NA CHLORIDE 0.9% 1,000 ML ONE (02:27)
[2024-12-14] MEDS ORDERED: KETOROLAC 30 MG/ML INJ ONE (02:27)
[2024-12-14] MEDS ORDERED: FAMOTIDINE 20 MG/2 ML VIAL IV ONE (02:27)
[2024-12-14] MEDS ORDERED: MORPHINE 4 MG/ML SYR ONE (02:27)
[2024-12-14] MEDS ORDERED: droPERidol 5 MG/2 ML VIAL ONE (02:30)
[2024-12-14 03:10] LABS: Absolute Basophils 0.1 K/uL (0-0.5); Absolute Eosinophils 0.2 K/uL (0-0.5); Absolute Lymphocytes (CBC) 1.3 K/uL (0.7-4.9); Absolute Monocytes 0.1 K/uL (0.1-1.3); Absolute Neutrophil 6.4 K/uL (1.8-8.0); Basophils % 0.7 % (0-1.3); Eosinophils % 2.3 % (0-4.4); Hematocrit 39.9 % (36.0-45.0); Hemoglobin 13.3 g/dL (12.0-15.0); Lymphocytes % 15.7 % (15.3-44.8); MCH 29.6 pg (27.0-35.0); MCHC 33.3 g/dL (32.0-36.0); MCV 88.8 fL (80-100); MPV 8.1 fL (7.6-11.3); Neutrophils % 80.3 % (41.7-73.7); Nucleated Red Blood Cells % 0.1 % (0-0); Platelets 286 thou/uL (152-406)
[2024-12-14 03:21] LABS: Albumin 3.5 g/dL (3.4-5.0); Albumin/Globulin Ratio 0.9 (1.1-1.8); Anion Gap 7.5 mEq/L (5.0-15.0); Globulin 3.7 g/dL (2.3-3.5); Potassium 3.5 mEq/L (3.5-5.1); Protein, Total 7.2 g/dL (6.4-8.2)
--- NOTE | 2024-12-14 04:38 | RAD REPORT ---
EXAM: CT Abdomen and Pelvis With Intravenous Contrast CLINICAL HISTORY: The patient is 59 years old and is Female; ABD PAIN TECHNIQUE: Axial computed tomography images of the abdomen and pelvis with intravenous contrast. Sagittal and coronal reformatted images were created and reviewed. This CT exam was performed using one or more of the following dose reduction techniques: automated exposure control, adjustmen t of the mA and/or kV according to patient size, and/or use of iterative reconstruction technique. COMPARISON: No relevant prior studies available. FINDINGS: Lung bases: Unremarkable. No mass. No consolidation. Mediastinum: Small hiatal hernia. ABDOMEN: Liver: Unremarkable. No mass. Gallbladder and bile ducts: Unremarkable. No calcified stones. No ductal dilation. Pancreas: Unremarkable. No mass. No ductal dilation. Spleen: There are couple small cysts in the spleen. Adrenals: 3 cm left adrenal nodule with attenuation of 47 Hounsfield units. Recommend adrenal was hout CT or chemical shift MRI. Kidneys and ureters: Unremarkable. No solid mass. No hydronephrosis. Stomach and bowel: Postsurgical changes in the stomach. No obstruction. No mucosal thickening. PELVIS: Appendix: No findings to suggest acute appendicitis. Bladder: Unremarkable. Reproductive: Uterus is not seen. ABDOMEN and PELVIS: Intraperitoneal space: Unremarkable. No free air. No significant fluid collection. Bones/joints: No acute fracture. No dislocation. Soft tissues: Unremarkable. Vasculature: Scattered atherosclerotic vascular calcifications. No abdominal aortic aneurysm. Lymph nodes: Unremarkable. No enlarged lymph nodes. IMPRESSION: No acute finding in the abdomen/pelvis. Additional non-emergent findings as above. Electronically signed by: Reinaldo Solis MD 12/14/2024 04:32 AM T 8 Due to temporary technical issues with the PACS/MaPS reporting system, reports are being cynthia d by the in-house radiologist without review as a courtesy to ensure prompt reporting the interpreting radiologist is fully responsible for the content of the report. Transcribed Date/Time: 12/14/2024 4:38 AM
--- NOTE | 2024-12-14 06:12 | ER ---
Nurse's Notes [facility] Name: Va Ayala Age: 59 yrs Sex: Female : 1965 Arrival Date: 12/14/2024 Time: 02:15 Bed 3 Private MD: Diagnosis: Acute epigastric abdominal pain, elevated liver enzymes, Acute viral gastroenteritis Presentation: 12/14 02:43 Chief complaint: Patient states: started hurting around 8 pm , took some immodium and vc1 tylenol. Pain became unbeatable. Coronavirus screen: Client denies travel out of the [place] in the last 14 days. At this time, the client does not indicate any symptoms associated with coronavirus-19. Ebola Screen: Patient negative for fever greater than or equal to 101.5 degrees Fahrenheit, and additional compatible Ebola Virus Disease symptoms Patient denies exposure to infectious person. Patient denies travel to an Ebola-affected area in the 21 days before illness onset. No symptoms or risks identified at this time. Initial Sepsis Screen: Does the patient meet any 2 criteria? No. Patient's initial sepsis screen is negative. Does the patient have a suspected source of infection? No. Patient's initial sepsis screen is negative. Risk Assessment: Do you want to hurt yourself or someone else? Patient reports no desire to harm self or others. Onset of symptoms was December 14, 2024. 02:43 Method Of Arrival: Wheelchair vc1 02:43 Acuity: RONDA 3 vc1 Triage Assessment: 02:51 General: Appears in no apparent distress. uncomfortable, Behavior is cooperative, vc1 crying, restless. General: Appears distressed, obese, well groomed, well developed, well nourished, Behavior is Denies fever. Pain: Complains of pain in epigastric area Pain radiates to diaphragm Pain currently is 10 out of 10 on a pain scale. Quality of pain is described as sharp, Pain began around 8 pm Is continuous. EENT: No deficits noted. No signs and/or symptoms were reported regarding the EENT system. Neuro: Level of Consciousness is awake, alert, obeys commands, Oriented to person, place, time, situation, Appropriate for age. Cardiovascular: Reports nausea, Denies chest pain, Heart tones S1 S2 present Capillary refill < 3 seconds Patient's skin is warm and dry. Rhythm is sinus tachycardia. Respiratory: Airway is patent Respiratory effort is even, unlabored, Respiratory pattern is symmetrical, tachypnea Breath sounds are clear bilaterally. GI: Abdomen is round non-distended, obese, Stools are reported to be took some immodium because she felt like she was about to get diarrhea. Bowel sounds present X 4 quads. : No deficits noted. No signs and/or symptoms were reported regarding the genitourinary system. Derm: Skin is intact, is healthy with good turgor, Skin is dry, Skin is normal, Skin temperature is warm. Historical: - Allergies: 02:46 No Known Allergies; vc1 - PMHx: 02:46 Heart Murmur; Hypertension; Hypothyroidism; vc1 - PSHx: 02:46 Gastric Sleeve (2019); vc1 - Immunization history:: Client reports having NOT received the Covid vaccine. Flu vaccine is up to date. - Infectious Disease History:: Denies. - Social history:: Smoking status: Patient denies any tobacco usage or history of. Patient uses alcohol, on a daily basis. 2 mixed drinks daily. - Family history:: not pertinent. Screenin:49 [facility] ED Fall Risk Assessment (Adult) History of falling in the last 3 months, vc1 including since admission No falls in past 3 months (0 pts) Confusion or Disorientation No (0 pts) Intoxicated or Sedated No (0 pts) Impaired Gait No (0 pts) Mobility Assist Device Used No (0 pt) Altered Elimination No (0 pt) Score/Fall Risk Level 0 - 2 = Low Risk Oriented to surroundings, Maintained a safe environment, Educated pt \T\ family on fall prevention, incl call for assistance when getting out of bed, Hourly rounding (assess needs \T\ fall precautionary measures) done. Abuse screen: Denies threats or abuse. Nutritional screening: No deficits noted. Tuberculosis screening: No symptoms or risk factors identified. Assessment: 03:01 Reassessment: see triage assessment. vc1 04:00 Reassessment: Patient appears in no apparent distress at this time. Patient and/or vc1 family updated on plan of care and expected duration. Pain level reassessed. Patient is alert, oriented x 3, equal unlabored respirations, skin warm/dry/pink. Patient states feeling better. Patient states symptoms have improved. 05:58 Reassessment: Patient appears in no apparent distress at this time. Patient and/or vc1 family updated on plan of care and expected duration. Pain level reassessed. Patient denies pain at this time. Patient states feeling better. Patient states symptoms have improved. Vital Signs: 02:43 BP 167 / 27; Pulse 96; Resp 22; Temp 98.7; Pulse Ox 100% ; vc1 03:00 BP 123 / 71; Pulse 95; Resp 13; Pulse Ox 96% ; vc1 04:00 BP 103 / 65; Pulse 95; Resp 12; Pulse Ox 97% ; vc1 06:00 BP 125 / 71; Pulse 109; Resp 12; Pulse Ox 92% ; vc1 [place] Coma Score: 06:17 Eye Response: spontaneous(4). Motor Response: obeys commands(6). Verbal Response: sp4 oriented(5). Total: 15. ED Course: 02:22 Patient arrived in ED. vc1 02:22 Inserted saline lock: 20 gauge in left antecubital area, using aseptic technique. Blood vc1 collected. Flushed with 10 mL NS. 02:22 Arm band placed on left wrist. EKG completed in triage. Results shown to MD. vc1 Antipyretics given from triage as ordered by an ER provider. Antipyretics given from triage as ordered by an ER provider. 02:23 Isauro Lynch MD is Attending Physician. sp4 02:24 EKG done, by ED staff. vk 02:40 Genesis Sumner, RUBY is Primary Nurse. vc1 02:45 Triage completed. vc1 02:49 Patient has correct armband on for positive identification. Bed in low position. Call vc1 light in reach. Provided Education on: Plan of care. Pulse ox on. NIBP on. 03:48 CT Abd/Pelvis - IV Contrast Only In Process Unspecified. EDMS 06:19 No provider procedures requiring assistance completed. IV discontinued, intact, vc1 bleeding controlled, No redness/swelling at site. Pressure dressing applied. Administered Medications: 02:41 Drug: Famotidine IVP 10 mg IVP once; dilute with 10 mL 0.9% NaCl; give over 2 minutes vc1 Route: IVP; Site: left antecubital; 03:00 Follow up: Response: No adverse reaction; Marked relief of symptoms; Pain is decreased vc1 02:41 Drug: NS 0.9% IV 1000 ml IV at 1 bolus Per protocol; to be given as a bolus over 60 vc1 minutes Route: IV; Rate: 1 bolus; Site: left antecubital; 03:30 Follow up: IV Status: Completed infusion; IV Intake: 1000ml vc1 02:42 Drug: Ketorolac IVP 30 mg IVP once Route: IVP; Site: left antecubital; vc1 06:02 Follow up: Response: No adverse reaction; Marked relief of symptoms; Pain is decreased vc1 02:42 Drug: morphine IVP or IV 6 mg IVP once over 4 mins Route: IVP; Infused Over: 4 mins; vc1 Site: left antecubital; 03:00 Follow up: Response: No adverse reaction; Marked relief of symptoms; Pain is decreased vc1 02:42 Drug: Ondansetron IVP 8 mg IVP once; over 2 minutes Route: IVP; Site: left antecubital; vc1 03:00 Follow up: Response: No adverse reaction; Marked relief of symptoms; Pain is decreased vc1 02:42 Drug: Droperidol IVP 2.5 mg IVP once Route: IVP; Site: left antecubital; vc1 03:00 Follow up: Response: No adverse reaction; Marked relief of symptoms; Pain is decreased vc1 Medication: 02:51 VIS not applicable for this client. vc1 Intake: 03:30 IV: 1000ml; Total: 1000ml. vc1 Outcome: 06:11 Discharge ordered by . sp4 06:19 Discharged to home via wheelchair, with significant other, vc1 06:19 Condition: good 06:19 Discharge instructions given to patient, significant other, Instructed on discharge instructions, follow up and referral plans. medication usage, Demonstrated understanding of instructions, follow-up care, medications, Prescriptions given X 4, 06:20 Patient left the ED. vc1 Signatures: Dispatcher [employer] EDMS Genesis Sumner RN RN vc1 Isauor Lynch MD MD sp4 Chichi Bonilla
--- NOTE | 2024-12-14 06:12 | EDPHYS ---
Physician Documentation [facility] Name: Va Ayala Age: 59 yrs Sex: Female : 1965 Arrival Date: 12/14/2024 Time: 02:15 Bed 3 Private MD: ED Physician Isauro Lynch HPI: 12/14 02:24 This 59 yrs old Female presents to ER via Unassigned with complaints of sp4 epigastric pain . 06:17 There is a 59-year-old female presents for acute moderate to severe epigastric pain sp4 associated with nausea. Acute onset at 11 PM . Historical: - Allergies: 02:46 No Known Allergies; vc1 - PMHx: 02:46 Heart Murmur; Hypertension; Hypothyroidism; vc1 - PSHx: 02:46 Gastric Sleeve (2019); vc1 - Immunization history:: Client reports having NOT received the Covid vaccine. Flu vaccine is up to date. - Infectious Disease History:: Denies. - Social history:: Smoking status: Patient denies any tobacco usage or history of. Patient uses alcohol, on a daily basis. 2 mixed drinks daily. - Family history:: not pertinent. ROS: 06:17 Constitutional: Negative for fever, chills, and weight loss, positive for moderate sp4 epigastric pain positive for nausea 06:17 All other systems are negative, Exam: 06:17 Constitutional: This is a well developed, well nourished patient who is awake, alert, sp4 and in no acute distress. Head/Face: Normocephalic, atraumatic. Eyes: Pupils equal round and reactive to light, extra-ocular motions intact. Lids and lashes normal. Conjunctiva and sclera are not injected. Cornea within normal limits. Periorbital areas with no swelling, redness, or edema. ENT: Nares patent. No nasal discharge, no septal abnormalities noted. Tympanic membranes are normal and external auditory canals are clear. Oropharynx with no redness, swelling, or masses, exudates, or evidence of obstruction, uvula midline. Mucous membranes moist. Neck: Trachea midline, no thyromegaly or masses palpated, and no cervical lymphadenopathy. Supple, full range of motion without nuchal rigidity, or vertebral point tenderness. Chest/axilla: Normal chest wall appearance and motion. Nontender with no deformity. No lesions are appreciated. Cardiovascular: Regular rate and rhythm with a normal S1 and S2. No gallops, murmurs, or rubs. Normal PMI, no JVD. No pulse deficits. Respiratory: Lungs have equal breath sounds bilaterally, clear to auscultation and percussion. No rales, rhonchi or wheezes noted. No increased work of breathing, no retractions or nasal flaring. Abdomen/GI: Soft, with normal bowel sounds. No distension or tympany. No guarding or rebound. No evidence of tenderness throughout. Back: No spinal tenderness. No costovertebral tenderness. Skin: Warm, dry with normal turgor. Normal color with no rashes, no lesions, and no evidence of cellulitis. MS/ Extremity: Pulses equal, no cyanosis. Neurovascular intact. Full, normal range of motion. Neuro: Awake and alert, GCS 15, oriented to person, place, time, and situation. Cranial nerves II-XII grossly intact. Motor strength 5/5 in all extremities. Sensory grossly intact. Psych: Awake, alert, with orientation to person, place and time. Behavior, mood, and affect are within normal limits 06:19 ECG was reviewed by the Attending Physician. EKG 0 221 normal sinus rhythm rate 78. sp4 Vital Signs: 02:43 BP 167 / 27; Pulse 96; Resp 22; Temp 98.7; Pulse Ox 100% ; vc1 03:00 BP 123 / 71; Pulse 95; Resp 13; Pulse Ox 96% ; vc1 04:00 BP 103 / 65; Pulse 95; Resp 12; Pulse Ox 97% ; vc1 06:00 BP 125 / 71; Pulse 109; Resp 12; Pulse Ox 92% ; vc1 [place] Coma Score: 06:17 Eye Response: spontaneous(4). Motor Response: obeys commands(6). Verbal Response: sp4 oriented(5). Total: 15. MDM: 02:25 Medical Screening Exam initiated sp4 04:44 ED course: COMPARISON: No relevant prior studies available. FINDINGS: Lung bases: sp4 Unremarkable. No mass. No consolidation. Mediastinum: Small hiatal hernia. ABDOMEN: Liver: Unremarkable. No mass. Gallbladder and bile ducts: Unremarkable. No calcified stones. No ductal dilation. Pancreas: Unremarkable. No mass. No ductal dilation. Spleen: There are couple small cysts in the spleen. Adrenals: 3 cm left adrenal nodule with attenuation of 47 Hounsfield units. Recommend adrenal washout CT or chemical shift MRI. Kidneys and ureters: Unremarkable. No solid mass. No hydronephrosis. Stomach and bowel: Postsurgical changes in the stomach. No obstruction. No mucosal thickening. PELVIS: Appendix: No findings to suggest acute appendicitis. Radiology Services Report Page 2 of 2 Bladder: Unremarkable. Reproductive: Uterus is not seen. ABDOMEN and PELVIS: Intraperitoneal space: Unremarkable. No free air. No significant fluid collection. Bones/joints: No acute fracture. No dislocation. Soft tissues: Unremarkable. Vasculature: Scattered atherosclerotic vascular calcifications. No abdominal aortic aneurysm. Lymph nodes: Unremarkable. No enlarged lymph nodes. IMPRESSION: No acute finding in the abdomen/pelvis. Additional non-emergent findings as above. Electronically signed by: Reinaldo Solis MD. 06:18 Differential diagnosis: appendicitis, bowel obstruction, cholecystitis, Cholelithiasis, sp4 diverticulitis, gastritis. Data reviewed: vital signs, nurses notes, lab test result(s), EKG, radiologic studies, CT scan. Consideration of Admission/Observation Escalation of care including admission/observation considered. ED course: Workup today reveals mild elevation of liver enzymes. Possibly viral gastroenteritis. Patient advised to recheck her liver enzymes in 2 to 3 weeks. As needed medications prescribed. Pain is under control. Patient stable for discharge home. 12/14 02:25 Order name: CT Abd/Pelvis - IV Contrast Only 4 12/14 02:25 Order name: CBC with Diff; Complete Time: 04:34 sp4 12/14 02:25 Order name: CMP; Complete Time: 04:34 sp4 12/14 02:25 Order name: Lipase; Complete Time: 04:34 sp4 12/14 02:25 Order name: Troponin High Sensitivity; Complete Time: 04:34 sp4 12/14 02:25 Order name: IV Saline Lock; Complete Time: 02:29 sp4 12/14 02:25 Order name: Labs collected and sent; Complete Time: 02:29 sp4 12/14 02:25 Order name: EKG - Nurse/Tech; Complete Time: 02:38 sp4 EC:21 Rate is 78 beats/min. Rhythm is regular, Normal Sinus Rhythm. QRS [place] is Normal. [place] sp4 interval is normal. QRS interval is normal. QT interval is normal. No Q waves. T waves are Normal. No ST changes noted. Clinical impression: No evidence of ischemia. Interpreted by me. Reviewed by me. Administered Medications: 02:41 Drug: Famotidine IVP 10 mg IVP once; dilute with 10 mL 0.9% NaCl; give over 2 minutes vc1 Route: IVP; Site: left antecubital; 03:00 Follow up: Response: No adverse reaction; Marked relief of symptoms; Pain is decreased vc1 02:41 Drug: NS 0.9% IV 1000 ml IV at 1 bolus Per protocol; to be given as a bolus over 60 vc1 minutes Route: IV; Rate: 1 bolus; Site: left antecubital; 03:30 Follow up: IV Status: Completed infusion; IV Intake: 1000ml vc1 02:42 Drug: Ketorolac IVP 30 mg IVP once Route: IVP; Site: left antecubital; vc1 06:02 Follow up: Response: No adverse reaction; Marked relief of symptoms; Pain is decreased vc1 02:42 Drug: morphine IVP or IV 6 mg IVP once over 4 mins Route: IVP; Infused Over: 4 mins; vc1 Site: left antecubital; 03:00 Follow up: Response: No adverse reaction; Marked relief of symptoms; Pain is decreased vc1 02:42 Drug: Ondansetron IVP 8 mg IVP once; over 2 minutes Route: IVP; Site: left antecubital; vc1 03:00 Follow up: Response: No adverse reaction; Marked relief of symptoms; Pain is decreased vc1 02:42 Drug: Droperidol IVP 2.5 mg IVP once Route: IVP; Site: left antecubital; vc1 03:00 Follow up: Response: No adverse reaction; Marked relief of symptoms; Pain is decreased vc1 Disposition Summary: 12/14/24 06:11 Discharge Ordered Problem: new sp4 Symptoms: have improved sp4 Condition: Stable sp4 Diagnosis - Acute epigastric abdominal pain, elevated liver enzymes, Acute viral gastroenteritissp4 Followup: sp4 - With: Private Physician - When: 7 - 10 days - Reason: Recheck today's complaints Discharge Instructions: - Discharge Summary Sheet sp4 - Clear Liquid Diet, Adult, [id number] sp4 Forms: - Patient Portal Instructions sp4 Prescriptions: - dicyclomine 20 mg Oral tablet - take 1 tablet ORAL route every 6 hours PRN pain; 30 tablet; Refills: 0, Product sp4 Selection Permitted - naproxen 500 mg Oral tablet - take 1 tablet ORAL route 2 times per day as needed for pain; 50 tablet; sp4 Refills: 0, Product Selection Permitted - Tramadol 50 mg Oral tablet - take 1 tablet ORAL route every 8 hours as needed; 20 tablet; Refills: 0, sp4 Product Selection Permitted - ondansetron 8 mg Oral Tablet,disintegrating - take 1 tablet ORAL route every 8 hours PRN nausea; 30 tablet; Refills: 0, sp4 Product Selection Permitted Signatures: Dispatcher [employer] Genesis Medrano RN RN vc1 Isauro Lynch MD MD sp4
[2024-12-14 06:38] VITALS: TEMP 98.7
[2024-12-14 06:47] VITALS: BP 125/71; O2SAT 92
--- NOTE | 2024-12-15 16:31 | EKG ---
Test Date: 2024-12-14 Test Time: 02:21:00 [employer] Machine Tender: VANESSA MEASUREMENT RESULTS: Intervals: Rate: 78 WI: 146 QRSD: 74 QT: 396 QTc: 451 [place]: P: 76 WI: 146 QRS: 75 T: 64 INTERPRETIVE STATEMENTS: Normal sinus rhythm Cannot rule out Anterior infarct, age undetermined Abnormal ECG Compared to ECG 10/02/2016 08:34:19 Myocardial infarct finding now present Electronically Signed On 12-15-24 16:30:22 CDT by Ismael Abdullahi
== END 2024-12-14 06:20 | disposition home or self-care (01) ==
LOC: ER 02:15
DX: A08.4 Viral intestinal infection, unspecified (principal); R74.01 Elevation of levels of liver transaminase levels; I10 Essential (primary) hypertension; Z98.84 Bariatric surgery status
CPT/HCPCS: 96361; 93005; 85025; 36415; 84484; 83690; 80053; 74177; 96375; 96374; 99285; Q9967; J2270; J2405; J1790; J7030